=== PATIENT | male | born 1975 | race African-American/Black ===

== ENCOUNTER 2016-10-29 09:27 | Emergency (ER) | payer OTHER ==
[2016-10-29 10:14] VITALS: BP 142/76
[2016-10-29] MEDS ORDERED: Naproxen TAB* 250 MG PO ONE (10:25)
--- NOTE | 2016-10-29 10:53 | RAD ---
INDICATION: Medial left knee pain COMPARISON: None TECHNIQUE: 4 view radiograph of the left knee. FINDINGS: The visualized bones are well-corticated and properly aligned. The joint spaces are properly maintained. There is no radiographic evidence of joint effusion. There is no acute fracture, dislocation or other focal bony abnormality. IMPRESSION: Normal knee radiograph as described above. If the patient's symptoms persist, follow-up imaging is recommended.
--- NOTE | 2016-10-29 11:00 | UC ---
Lower Extremity/Ankle HPI - HPI Summary HPI Summary: Patient has had on and off knee pain for the past few months. had a right achilles rupture and has had pain and swelling in the left knee since the injury. denies any injury. there is swelling around the top of the patella and pain in the medial aspect of the knee. - History of Current Complaint Chief Complaint: UCLowerExtremity Stated Complaint: KNEE PAIN Time Seen by Provider: 10/29/16 10:18 Hx Obtained From: Patient Onset/Duration: Sudden Onset, Lasting Days Severity Initially: Mild Severity Currently: Moderate Aggravating Factor(s): Standing, Ambulation Alleviating Factor(s): Nothing Able to Bear Weight: Yes - Allergies/Home Medications Allergies/Adverse Reactions: Allergies Allergy/AdvReac Type Severity Reaction Status Date / Time No Known Allergies Allergy Verified 10/29/16 10:12 PMH/Surg Hx/FS Hx/Imm Hx Previously Healthy: Yes Endocrine History Of: Denies: Diabetes, Thyroid Disease Cardiovascular History Of: Denies: Cardiac Disorders, Hypertension Respiratory History Of: Reports: Asthma Denies: COPD GI/ History Of: Denies: Ulcer - Surgical History Surgical History: Yes Surgery Procedure, Year, and Place: surgery for achilles tendon, RIGHT 2012 - Family History Known Family History: Negative: Cardiac Disease, Hypertension - Social History Alcohol Use: Occasionally Substance Use Type: Marijuana Substance Use Comment - Amount & Last Used: a few times a week Smoking Status (MU): Former Smoker Type: Cigarettes Amount Used/How Often: 2-3 per week Length of Time of Smoking/Using Tobacco: 15 years Have You Smoked in the Last Year: Yes When Did the Patient Quit Smoking/Using Tobacco: 2013 Review of Systems Constitutional: Negative Skin: Negative Eyes: Negative ENT: Negative Respiratory: Negative Cardiovascular: Negative Gastrointestinal: Negative Genitourinary: Negative Motor: Negative Neurovascular: Negative Musculoskeletal: Arthralgia, Decreased ROM, Edema, Myalgia Neurological: Negative Psychological: Negative All Other Systems Reviewed And Are Negative: Yes Physical Exam Triage Information Reviewed: Yes Appearance: Well-Appearing, Well-Nourished, Pain Distress Vital Signs: Initial Vital Signs Temp 99.1 F 10/29/16 10:12 Pulse 72 10/29/16 10:12 Resp 16 10/29/16 10:12 BP 142/76 10/29/16 10:12 Pulse Ox 98 10/29/16 10:12 Vital Signs Reviewed: Yes Eye Exam: Normal Eyes: Positive: Conjunctiva Clear ENT Exam: Normal ENT: Positive: Normal ENT inspection, Hearing grossly normal, Pharynx normal, TMs normal Dental Exam: Normal Neck exam: Normal Neck: Positive: Supple, Nontender, No Lymphadenopathy Respiratory Exam: Normal Respiratory: Positive: Chest non-tender, Lungs clear, Normal breath sounds Cardiovascular Exam: Normal Cardiovascular: Positive: RRR, No Murmur, Pulses Normal Abdominal Exam: Normal Abdomen Description: Positive: Nontender, No Organomegaly, Soft Bowel Sounds: Positive: Present Musculoskeletal: Positive: Strength Intact, Strength Limited @ - RR, ROM Limited @ - cannot fully extend do to pain, Edema @ - in the left knee Neurological Exam: Normal Neurological: Positive: Alert, Muscle Tone Normal Psychological Exam: Normal Skin Exam: Normal Lower Extremity Course/Dx - Course Course Of Treatment: Hx obtained, exam performed, xray obtained, neg for bony abnormality, maurisio wrap applied and referred to ortho for further evaluation - Differential Dx/Diagnosis Differential Diagnosis/HQI/PQRI: Contusion, Dislocation, Fracture (Closed), Sprain, Strain Provider Diagnoses: knee swelling. knee pain Discharge - Discharge Plan Condition: Stable Disposition: HOME Patient Education Materials: Knee Pain (ED) Referrals: No Primary Care Phys,NOPCP [Primary Care Provider] - Debra Zamora MD [Medical Doctor] - Additional Instructions: Continue to use the maurisio wrap for swelling reduction. Use ALeve twice a day for pain and swelling. ELevate the leg at rest. I recommend follow up with ortho if pain persists. Your xray today did not show any sign of fracture or bony abnormalities. I have included the name of an orthopedic for follow up.
== END 2016-10-29 11:20 | disposition home or self-care (01) ==
LOC: UCEAST 09:27
DX: M25.562 Pain in left knee (principal); M25.462 Effusion, left knee; R03.0 Elevated blood-pressure reading, without diagnosis of hypertension; Z87.891 Personal history of nicotine dependence
CPT/HCPCS: 99212; A9270-GY; G0463

== ENCOUNTER 2018-09-11 09:16 | Emergency (ER) | payer OTHER ==
[2018-09-11 09:28] VITALS: BP 117/69
--- NOTE | 2018-09-11 10:10 | UC ---
Skin Complaint HPI - HPI Summary HPI Summary: 2 DAYS AGO DEVELOPED A LUMP IN HIS LEFT EARLOBE. IT HAS GOTTEN BIGGER AND MORE PAINFUL. NO FEVER. NO TRAUMA TO THE AREA. PATIENT DOES HAVE PIERCINGS IN HIS EARLOBE BUT HAS NOT WORN EARRINGS IN YEARS. - History of Current Complaint Chief Complaint: UCEar Time Seen by Provider: 09/11/18 09:51 Stated Complaint: EAR PAIN Hx Obtained From: Patient Onset/Duration: Gradual Onset, Lasting Days, Still Present Timing: Constant Onset Severity: Moderate Current Severity: Moderate Pain Intensity: 7 Pain Scale Used: 0-10 Numeric Location: Discrete - LEFY EAR LOBE Character: Pain, Redness Aggravating Factor(s): Touch Alleviating Factor(s): Nothing Associated Signs & Symptoms: Positive: Tenderness. Negative: Fever - Allergy/Home Medications Allergies/Adverse Reactions: Allergies Allergy/AdvReac Type Severity Reaction Status Date / Time No Known Allergies Allergy Verified 09/11/18 09:28 PMH/Surg Hx/FS Hx/Imm Hx Respiratory History: Asthma - Surgical History Surgical History: Yes Surgery Procedure, Year, and Place: surgery for achilles tendon, RIGHT 2012 - Family History Known Family History: Negative: Cardiac Disease, Hypertension - Social History Alcohol Use: Occasionally Substance Use Type: Marijuana Substance Use Comment - Amount & Last Used: a few times a week Smoking Status (MU): Light Every Day Tobacco Smoker Type: Cigarettes Amount Used/How Often: 2-3 per week Length of Time of Smoking/Using Tobacco: 15 years Have You Smoked in the Last Year: Yes When Did the Patient Quit Smoking/Using Tobacco: 2013 Review of Systems All Other Systems Reviewed And Are Negative: Yes Constitutional: Positive: Negative Skin: Positive: Other - ERYTHEMA, TENDER LUMP LEFT EAR LOBE Respiratory: Positive: Negative Cardiovascular: Positive: Negative Gastrointestinal: Positive: Negative Physical Exam Triage Information Reviewed: Yes Appearance: Well-Appearing, No Pain Distress, Well-Nourished Vital Signs: Initial Vital Signs Temp 98 F 09/11/18 09:25 Pulse 72 09/11/18 09:25 Resp 18 09/11/18 09:25 BP 117/69 09/11/18 09:25 Pulse Ox 99 09/11/18 09:25 Vital Signs Reviewed: Yes Eyes: Positive: Conjunctiva Clear ENT: Positive: Hearing grossly normal, Pharynx normal, TMs normal, Other - LEFT EAR LOBE ERYTHEMATOUS WITH TENDER, SOFT MASS Neck: Positive: Supple Respiratory: Positive: No respiratory distress, No accessory muscle use Cardiovascular: Positive: Pulses Normal Abdomen Description: Positive: Soft Musculoskeletal: Positive: No Edema Neurological: Positive: Alert Psychological: Positive: Age Appropriate Behavior Skin: Positive: Other - TENDER ERYTHEMATOUS MASS LEFT EAR LOBE Procedures - Incision and Drainage Left Ear Site: LEFT POSTERIOR EAR LOBE Anesthesia: Other - NONE Instrument(s): Scalpel - #11 Course/Dx - Course Course Of Treatment: #11 BLADE USED TO MAKE A SMALL OPENING IN THE TENDER MASS ON THE POSTERIOR SIDE OF THE LEFT EARLOBE. SOME BLOOD WAS EXPRESSED BUT NO PUS. WOUND WAS BANDAGED AND PATIENT PLACED ON ANTIBIOTICS. ADVISED HOT COMPRESSES. FOLLOW-UP WITH ENT IF NOT IMPROVING WITH ANTIBIOTIC TREATMENT. - Diagnoses Provider Diagnosis: Abscess of left earlobe Discharge - Sign-Out/Discharge Documenting (check all that apply): Patient Departure All imaging exams completed and their final reports reviewed: No Studies - Discharge Plan Condition: Stable Disposition: HOME Prescriptions: Sulfamethox/Trimethoprim DS* [Bactrim DS 800/160 TAB*] 1 tab PO BID #20 tab Patient Education Materials: Abscess (ED) Referrals: Jovanny Johnson MD [Primary Care Provider] - If Needed Additional Instructions: NO PUS WAS EXPRESSED TODAY. TAKE THE MEDICINE FOR THE FULL COURSE TO TREAT YOUR INFECTION. WARM/HOT COMPRESSES AT LEAST 4 TIMES DAILY SEEK FOLLOW-UP IF YOU DEVELOP FURTHER SPREADING REDNESS OF THE SKIN, PERSISTENT PURULENT DRAINAGE, FEVER, INCREASED PAIN OR ANY OTHER CONCERNING SYMPTOMS. IF YOU ARE NOT IMPROVING FOLLOW-UP WITH ENT OR GENERAL SURGERY. [facility] [place] [address] AND [address] [facility] [phone] GENERAL SURGERY IN [place]: [facility] [place]: [phone] [facility]: [phone] - Billing Disposition and Condition Condition: STABLE Disposition: Home
== END 2018-09-11 10:40 | disposition home or self-care (01) ==
LOC: UCEAST 09:16
DX: H60.02 Abscess of left external ear (principal); F17.210 Nicotine dependence, cigarettes, uncomplicated; J45.909 Unspecified asthma, uncomplicated
CPT/HCPCS: 10060; 69000; 99212; G0463

== ENCOUNTER 2022-10-29 16:03 | Observation (INO) ==
[2022-10-29 18:35] LABS: ABS Eosinophils 0.2 10^3/ul (0-0.6); ABS Lymphocytes 1.7 10^3/ul (1.0-4.8); ABS Monocytes 1.2 10^3/ul (0-0.8); ABS Neutrophils 12.7 10^3/ul (1.5-7.7); Eosinophil % 1.2 %; Hematocrit 46 % (42-52); Hemoglobin 15.3 g/dL (14.0-18.0); Lymphocyte % 10.5 %; Mean Corpuscular HGB Conc 33 g/dL (31-36); Mean Corpuscular Hemoglobin 31 pg (27-31); Mean Corpuscular Volume 92 fL (80-94); Mean Platelet Volume 7.6 fL (7.4-10.4); Platelet Count 395 10^3/uL (150-450); Red Blood Count 5.02 10^6 /uL (4.18-5.48); Red Cell Distribution Width 14 % (10-15); White Blood Count 15.7 10^3/uL (3.5-10.8)
[2022-10-29 19:33] LABS: Albumin 4.6 g/dL (3.2-5.2); Albumin/Globulin Ratio 1.6 (1-3); Calcium 9.8 mg/dL (8.6-10.3); Creatinine, Serum 0.89 mg/dL (0.67-1.17); Globulin 2.8 g/dL (2-4); Potassium 4.4 mmol/L (3.5-5.0); Total Bilirubin 0.6 mg/dL (0.2-1.0); Total Protein 7.4 g/dL (6.4-8.9); eGFR CKD-EPI 107.7 (>60)
[2022-10-29] MEDS ORDERED: metroNIDAZOLE IV 500 MG/100ML 500 MG/100 ML BAG IVPB ONE (19:57)
[2022-10-29] MEDS ORDERED: cefTRIAXone 2 GM ADDV.VIAL 2 GM in NS 0.9% 100 ml BAG 100 ML IV ONE (19:57)
[2022-10-29] MEDS ORDERED: HYDROmorphone 1 MG/1 ML SYRINGE IV SLOW PU PRN (20:52)
[2022-10-29] MEDS ORDERED: Ondansetron 4 mg VIAL 2 MG/ML 2 ml VIAL IV PRN (20:52)
[2022-10-29] MEDS ORDERED: Lactated Ringers 1000 ml BAG 1,000 ML IV SCH (21:00)
[2022-10-29] MEDS: ceFOXitin 2 GM IVPREMIX 2 GM/50 ML BAG IVPB SCH (21:03)
[2022-10-29 21:28] LABS: Urine Appearance Clear; Urine Bilirubin Negative (Negative); Urine Blood Negative (Negative); Urine Color Yellow; Urine Glucose Negative (Negative); Urine Ketones Negative (Negative); Urine Nitrite Negative (Negative); Urine Protein 1+(30 mg/dL) (Negative); Urine Specific Gravity 1.032 (1.002-1.030); Urine Urobilinogen Negative (Negative)
[2022-10-29 21:34] LABS: Urine Bacteria 1+ (Absent); Urine Red Blood Cell Trace(0-2/hpf) (Absent); Urine Squamous Epithelial Cell Present (Absent); Urine White Blood Cell Trace(0-5/hpf) (Absent)
[2022-10-30] MEDS: ceFOXitin 2 GM IVPREMIX 2 GM/50 ML BAG IVPB SCH (04:57)
[2022-10-30 04:58] LABS: ABS Eosinophils 0.3 10^3/ul (0-0.6); ABS Lymphocytes 1.6 10^3/ul (1.0-4.8); ABS Monocytes 0.9 10^3/ul (0-0.8); ABS Neutrophils 6.4 10^3/ul (1.5-7.7); Eosinophil % 2.8 %; Hematocrit 34 % (42-52); Hemoglobin 11.3 g/dL (14.0-18.0); Lymphocyte % 17.3 %; Mean Corpuscular HGB Conc 34 g/dL (31-36); Mean Corpuscular Hemoglobin 31 pg (27-31); Mean Corpuscular Volume 93 fL (80-94); Mean Platelet Volume 7.8 fL (7.4-10.4); Nucleated Red Blood Cells % 0.1; Platelet Count 283 10^3/uL (150-450); Red Blood Count 3.61 10^6 /uL (4.18-5.48); Red Cell Distribution Width 14 % (10-15); White Blood Count 9.2 10^3/uL (3.5-10.8)
[2022-10-30] MEDS ORDERED: Ondansetron 4 mg VIAL 2 MG/ML 2 ml VIAL IV PRN (10:46)
[2022-10-30] MEDS ORDERED: Naloxone 0.4 mg VIAL 0.4 mg/ml 1 ml VIAL IV PRN (10:46)
[2022-10-30] MEDS ORDERED: oxyCODONE/Acetamin 5/325 mg TAB PO PRN (10:46)
[2022-10-30] MEDS ORDERED: Bupivacaine 0.5% 50 ML MDV VIAL ONE (11:03)
[2022-10-30] MEDS ORDERED: Ondansetron 4 mg VIAL 2 MG/ML 2 ml VIAL ONE (11:07)
[2022-10-30] MEDS ORDERED: Lidocaine 2% PF 5 ML VIAL ONE (11:07)
[2022-10-30] MEDS ORDERED: Rocuronium 50 mg VIAL 10 mg/ml 5 ml VIAL (50 mg) ONE ×2 (11:07→12:52)
[2022-10-30] MEDS ORDERED: Dexamethasone IV 4 MG/ML VIAL 1 ml VIAL ONE (11:07)
[2022-10-30] MEDS ORDERED: Propofol 10 MG/ML 20 ML BTL ONE ×2 (11:07→13:45)
[2022-10-30] MEDS ORDERED: Midazolam 2 mg/2 ml VIAL 1 mg/ml 2 ml VIAL (2 mg) ONE (11:07)
[2022-10-30] MEDS ORDERED: fentaNYL 250 mcg/5 ml 50 MCG/ML 5 ml VIAL (250 MCG) ONE (11:07)
[2022-10-30] MEDS ORDERED: Acetaminophen IV 1 GM/100ML 1,000 MG/100 ML BAG IV ONE (11:12)
[2022-10-30] MEDS ORDERED: metroNIDAZOLE IV 500 MG/100ML 500 MG/100 ML BAG IVPB SCH (12:00)
[2022-10-30] MEDS ORDERED: hydrALAZINE 20 mg/ml 1 ML Vial IV ONE (12:36)
[2022-10-30] MEDS ORDERED: Sodium Chloride 0.9% 10 ML ONE (12:36)
[2022-10-30] MEDS ORDERED: Dexmedetomidine 200 mcg/2 ml 2 ml VIAL (200 mcg) ONE (13:22)
[2022-10-30] MEDS ORDERED: HYDROmorphone 0.5 MG/0.5 ML SYRINGE ONE (13:32)
[2022-10-30] MEDS ORDERED: fentaNYL 100 mcg/2 ml 50 MCG/ML VIAL ONE (14:19)
[2022-10-30] MEDS: fentaNYL 100 mcg/2 ml 50 MCG/ML VIAL IV PRN ×2 (14:22→15:05)
[2022-10-30] MEDS ORDERED: Albuterol 2.5mg/3 ml (0.083%) NEB.SOLN INH ONE (14:37)
[2022-10-30] MEDS ORDERED: oxyCODONE/Acetamin 5/325 mg TAB ONE (15:23)
[2022-10-30 17:12] VITALS: BP 152/76
== END 2022-10-30 15:48 | disposition home or self-care (01) ==
LOC: ED 16:03 → EDHOLD 16:03
PROVIDERS: ADMIT Surgery; ATTEND Surgery